=== PATIENT | female | born 1955 | race African-American/Black ===

== ENCOUNTER 2018-02-02 10:54 | Emergency (ER) | payer OTHER ==
[~2018-02-02] VITALS: Ht 162.6 cm; Wt 67.3 kg
[2018-02-02] MEDS ORDERED: ASPI-556 PO (11:32)
[2018-02-02] MEDS ORDERED: HYDR-4061 PO (11:32)
[2018-02-02] MEDS ORDERED: MEMA10TA11 PO (11:32)
[2018-02-02] MEDS ORDERED: OMEP20 PO (11:32)
[2018-02-02] MEDS ORDERED: VARE0.5T PO (11:32)
[2018-02-02] MEDS ORDERED: DIAZ10 PO (11:32)
[2018-02-02] MEDS ORDERED: TEMA15CA PO (11:32)
[2018-02-02] MEDS ORDERED: MIRT15 PO (11:32)
[2018-02-02 14:28] VITALS: BP 146/72
== END 2018-02-02 14:36 | disposition home or self-care (01) ==
LOC: EMS 10:55
DX: R60.0 Localized edema (principal)
CPT/HCPCS: 93971; 99284